=== PATIENT | male | born 1970 | race American Indian/Alaskan Native ===

== ENCOUNTER 2016-10-19 21:19 | Emergency (ER) | payer MEDICAID ==
[~2016-10-19] VITALS: Ht 167.6 cm; Wt 59.0 kg
[2016-10-19 21:21] VITALS: BP 127/87
== END 2016-10-19 22:27 | disposition home or self-care (01) ==
LOC: ED 22:00
DX: T20.14XA Burn of first degree of nose (septum), initial encounter (principal); T20.12XA Burn of first degree of lip(s), initial encounter; L02.511 Cutaneous abscess of right hand; X08.8XXA Exposure to other specified smoke, fire and flames, initial encounter; Y93.89 Activity, other specified; Y92.89 Other specified places as the place of occurrence of the external cause; Y99.9 Unspecified external cause status
CPT/HCPCS: 99283

== ENCOUNTER 2017-04-26 02:32 | Emergency (ER) | payer MEDICAID ==
[~2017-04-26] VITALS: Ht 167.6 cm; Wt 60.0 kg
[2017-04-26] MEDS ORDERED: SODIUM CHLORIDE 0.9% 1,000ML IVBOLUS ONE (03:00)
[2017-04-26] MEDS ORDERED: MORPHINE SULFATE 4 MG/ML, 1ML IVPush PRN (03:00)
[2017-04-26] MEDS ORDERED: SODIUM CHLORIDE FLUSH 10ML SYR IVF ONE (03:00)
[2017-04-26] MEDS ORDERED: ONDANSETRON 2MG/ML, 2ML IVPush ONE (03:00)
[2017-04-26] MEDS ORDERED: FAMOTIDINE 20 MG/2 ML IVP ONE (03:00)
[2017-04-26] MEDS ORDERED: HYDROmorphone 1 MG/ML, 1ML ONE (03:27)
[2017-04-26 03:28] LABS: ASPARTATE AMINO TRANSFERASE 137 U/L (15-37); BLOOD UREA NITROGEN 3 mg/dL (7-18); HEMATOCRIT 32.5 % (39.2-51.8); HEMOGLOBIN 9.8 g/dL (13.7-18.0); WHITE BLOOD COUNT 4.6 x10^3/uL (3.4-10)
[2017-04-26] MEDS ORDERED: ONDANSETRON 2MG/ML, 2ML ONE (03:28)
[2017-04-26] MEDS ORDERED: FAMOTIDINE 20 MG/2 ML ONE (03:28)
[2017-04-26] MEDS ORDERED: HYDROmorphone 2 MG/ML, 1ML IVPush PRN (03:30)
[2017-04-26 03:43] LABS: DIFF TOTAL CELLS COUNTED 100 CELL DIFF
[2017-04-26 03:45] LABS: VERIFY COUNTS? YES
[2017-04-26 03:46] LABS: ANISOCYTOSIS 1+; HYPOCHROMIA 1+; LARGE PLATELETS 1+; OVALOCYTES 1+; POLYCHROMASIA 1+; TARGET CELLS 1+
[2017-04-26 04:40] VITALS: BP 118/79
== END 2017-04-26 04:43 | disposition home or self-care (01) ==
LOC: ED 03:54
DX: K29.20 Alcoholic gastritis without bleeding (principal); F10.229 Alcohol dependence with intoxication, unspecified
CPT/HCPCS: 36415; 80053; 80307; 81003; 83690; 85025; 96361; 96374; 96375; 99284; J1170; J2405; J7030; G0479; S0028

== ENCOUNTER 2018-02-19 22:46 | Emergency (ER) | payer MEDICAID ==
[~2018-02-19] VITALS: Ht 167.6 cm; Wt 57.0 kg
[2018-02-20] MEDS ORDERED: FAMOTIDINE 20 MG TABLET PO ONE
[2018-02-20] MEDS ORDERED: MAALOX/HYOSCYAMINE/LIDOCAINE 45 ML BTL PO ONE
[2018-02-20] MEDS ORDERED: FAMOTIDINE 20 MG TABLET ONE (00:02)
[2018-02-20] MEDS ORDERED: MAALOX/HYOSCYAMINE/LIDOCAINE 45 ML BTL ONE (00:02)
[2018-02-20 00:32] LABS: ALANINE AMINOTRANSFERASE 31 U/L (12-78); ALBUMIN 3.7 g/dL (3.4-5.0); ANION GAP 8 mmol/L (5-15); CHLORIDE 108 mmol/L (98-107); CREATININE 0.54 mg/dL (0.7-1.3)
[2018-02-20 00:35] LABS: ALKALINE PHOSPHATASE 93 U/L (45-117); BILIRUBIN,TOTAL 0.3 mg/dL (0.2-1.0); TOTAL PROTEIN 8.1 g/dL (6.4-8.2)
[2018-02-20 01:02] LABS: MD YES; MEAN CORPUSCULAR HEMOGLOBIN 25.9 pg (27.5-34.5); MEAN CORPUSCULAR HGB CONC 32.2 g/dL (33.2-36.2); MEAN CORPUSCULAR VOLUME 80.6 fL (81-97); MEAN PLATELET VOLUME 8.6 fL (7.4-10.4); PLATELET COUNT 255 x10^3/uL (130-400); RED BLOOD COUNT 4.38 x10^6/uL (4.38-5.82); RED CELL DISTRIBUTION WIDTH 19.2 % (9.4-14.8)
[2018-02-20 01:05] LABS: BAND#(MANUAL) 0.13 x10^3/uL; BANDS%(MANUAL) 3 % (0-7); EOS#(MANUAL) 0.04 x10^3/uL (0.0-0.4); EOS% (MANUAL) 1 % (1-7); LYMPH#(MANUAL) 1.76 x10^3/uL (1-3.4); LYMPHS% (MANUAL) 40 % (22-44); MONOS#(MANUAL) 0.31 x10^3/uL (0.3-2.7); MONOS% (MANUAL) 7 % (2-9); SEG#(MANUAL) 2.16 x10^3/uL (1.8-6.8); SEGS% (MANUAL) 49 % (42-75)
[2018-02-20 01:06] LABS: ANISOCYTOSIS 1+; HYPOCHROMIA 1+; MICROCYTOSIS 1+; OVALOCYTES 1+; POLYCHROMASIA 1+
[2018-02-20 01:07] LABS: <PLATELET ESTIMATE> ADEQUATE; <PLT MORPHOLOGY> NORMAL PLT MORPH; TARGET CELLS 1+
[2018-02-20 01:57] VITALS: BP 107/73
== END 2018-02-20 02:04 | disposition home or self-care (01) ==
LOC: ED 23:55
DX: K29.20 Alcoholic gastritis without bleeding (principal)
CPT/HCPCS: 36415; 80053; 83690; 85025; 93005; 99285

== ENCOUNTER 2019-06-17 03:18 | Emergency (ER) | payer SELFPAY ==
[~2019-06-17] VITALS: Ht 167.6 cm; Wt 60.1 kg
[2019-06-17 03:24] VITALS: BP 124/82
[2019-06-17] MEDS ORDERED: MAALOX/HYOSCYAMINE/LIDOCAINE 45 ML BTL PO ONE (04:00)
[2019-06-17] MEDS ORDERED: ONDANSETRON ODT 4 MG PO ONE (04:00)
[2019-06-17] MEDS ORDERED: MAALOX/HYOSCYAMINE/LIDOCAINE 45 ML BTL ONE (04:10)
[2019-06-17] MEDS ORDERED: ONDANSETRON ODT 4 MG ONE (04:10)
[2019-06-17 04:19] LABS: MEAN CORPUSCULAR HEMOGLOBIN 24.4 pg (27.5-34.5); MEAN CORPUSCULAR HGB CONC 31.1 g/dL (33.2-36.2); MEAN CORPUSCULAR VOLUME 78.7 fL (81-97); MEAN PLATELET VOLUME 8.6 fL (7.4-10.4); PLATELET COUNT 286 x10^3/uL (130-400); RED BLOOD COUNT 3.88 x10^6/uL (4.38-5.82); RED CELL DISTRIBUTION WIDTH 18.7 % (9.4-14.8)
[2019-06-17 04:32] LABS: ALANINE AMINOTRANSFERASE 70 U/L (12-78); ALBUMIN 3.7 g/dL (3.4-5.0); ANION GAP 10 mmol/L (5-15); CALCIUM 8.5 mg/dL (8.5-10.1); CHLORIDE 107 mmol/L (98-107); CREATININE 0.49 mg/dL (0.7-1.3)
[2019-06-17 04:33] LABS: ALKALINE PHOSPHATASE 97 U/L (45-117); BILIRUBIN,TOTAL 0.3 mg/dL (0.2-1.0)
[2019-06-17 04:50] LABS: MD YES
[2019-06-17 04:54] LABS: BAND#(MANUAL) 0.04 x10^3/uL; BANDS%(MANUAL) 1 % (0-7); BASOS#(MANUAL) 0.13 x10^3/uL (0-0.1); BASOS% (MANUAL) 3 % (0-1); EOS#(MANUAL) 0.08 x10^3/uL (0.0-0.4); EOS% (MANUAL) 2 % (1-7); LYMPH#(MANUAL) 0.88 x10^3/uL (1-3.4); LYMPHS% (MANUAL) 21 % (22-44); MONOS#(MANUAL) 0.88 x10^3/uL (0.3-2.7); MONOS% (MANUAL) 21 % (2-9); SEG#(MANUAL) 2.18 x10^3/uL (1.8-6.8); SEGS% (MANUAL) 52 % (42-75)
[2019-06-17 04:55] LABS: ANISOCYTOSIS 1+; HYPOCHROMIA 1+; POLYCHROMASIA 1+; TARGET CELLS 1+
[2019-06-17 04:56] LABS: <PLATELET ESTIMATE> ADEQUATE; MICROCYTOSIS 1+; OVALOCYTES 1+
[2019-06-17 04:57] LABS: <PLT MORPHOLOGY> NORMAL PLT MORPH
[2019-06-17] MEDS ORDERED: FAMOTIDINE 20 MG TABLET PO ONE (05:00)
[2019-06-17] MEDS ORDERED: FAMOTIDINE 20 MG TABLET ONE (05:01)
== END 2019-06-17 05:26 | disposition home or self-care (01) ==
LOC: ED 05:23
DX: K29.20 Alcoholic gastritis without bleeding (principal); F10.20 Alcohol dependence, uncomplicated; Y90.0 Blood alcohol level of less than 20 mg/100 ml
CPT/HCPCS: 36415; 80053; 83690; 85025; 99284; Q0162